=== PATIENT | female | born 1950 | race Caucasian/White ===

== ENCOUNTER 2024-03-20 11:25 | Day surgery (SDC) | payer MEDICARE, SELFPAY ==
[2024-03-20] VITALS (7 sets, daily range): BP systolic 133–170; BP diastolic 83–96; PULSE 67–94; RESP 16–18; TEMP 36.6–37; O2SAT 94–99; BMI 23.9
[2024-03-20] MEDS: Lactated Ringers 1,000 ML 100 ML IVCONT (12:51)
--- NOTE | 2024-03-20 13:55 | PC.NURSE ---
24hr update documented on paper.
--- NOTE | 2024-03-20 14:15 | P.CONAN_ITS ---
Documented by User: Dilma Castro NP 03/19/24 09:37 HPI - Anesthesia Eval Consult details Narrative: 73yo F for Right lateral Eye Muscle Recession,Right medial Rectus Resection Medically optimized per [facility] preop clinic [facility] Past Medical History Medical History (Updated 03/18/24 @ 13:01 by Imani Cook, LAURA) Hx of renal calculi Trigeminal neuralgia Prerenal azotemia Peripheral neuropathy Osteoporosis Nodular thyroid disease Multinodular goiter Macrocytic anemia Insomnia Hypertension Hypercholesteremia Hepatic steatosis Hepatic cyst Diverticulosis Diastolic dysfunction without heart failure Chronic sinusitis Chronic low back pain Cerebral arterial aneurysm Bradycardia Benign paroxysmal positional vertigo Asbestos exposure Anxiety disorder Alcohol dependence, in remission Acromegaly Surgical History Surgical History (Updated 03/18/24 @ 13:00 by Imani Cook RN) Hx of colonoscopy History of neurologic surgery History of surgery Hx of cataract extraction H/O excision of ganglion cyst History of surgery Hx of cerebral aneurysm repair (~2007) Social History Social History (Updated 03/18/24 @ 13:03 by Imani Cook RN) Patient Tobacco Use Status: Former Tobacco user Use of substances other than those prescribed or required for medical reasons: Yes Substance Use Type: Marijuana Substance Use Frequency: Daily Are you DNR?: No Advance Directives: No Advance Directives Information Provided: Yes Meds Allergies Allergy/AdvReac Type Severity Reaction Status Date / Time latex Allergy Unknown Verified 03/20/24 12:04 morphine Allergy Unknown Verified 03/20/24 12:04 Home Medications ?Medication ?Instructions ?Recorded ?Confirmed ?Last Taken ?Type No Known Home Meds 03/20/24 03/20/24 Unknown History Exam Narrative Narrative: ECHO 2022 The mitral valve appears mildly calcified. There is mild mitral regurgitation. The right ventricle is normal in size and function. The left ventricular size is normal. Left ventricular wall thickness is normal. The LV systolic function is normal . The left ventricular ejection fraction is 55-60 %. There are no regional wall motion abnormalities. Grade I, mild diastolic dysfunction with impaired LV relaxation, which may be normal for the patient's age. The pulmonary artery systolic pressure estimation is within normal limits. Assessment and Plan Assessment Anesthesia Assessment: Chart Reviewed Documented by User: Nitza Gonsalez DO 03/20/24 14:41 HPI - Anesthesia Eval Consult details Narrative: 73yo F for Right lateral Eye Muscle Recession,Right medial Rectus Resection Medically optimized per [facility] preop clinic 03/20/24: patient was adamant about not receiving any pain medications intra- operatively, stating that she had this surgery before and had no pain. Agreed with PRN Tylenol in PACU at her discretion and states that she will have marijuana for pain at home. [facility] Past Medical History Medical History (Updated 03/18/24 @ 13:01 by Imani Cook RN) Hx of renal calculi Trigeminal neuralgia Prerenal azotemia Peripheral neuropathy Osteoporosis Nodular thyroid disease Multinodular goiter Macrocytic anemia Insomnia Hypertension Hypercholesteremia Hepatic steatosis Hepatic cyst Diverticulosis Diastolic dysfunction without heart failure Chronic sinusitis Chronic low back pain Cerebral arterial aneurysm Bradycardia Benign paroxysmal positional vertigo Asbestos exposure Anxiety disorder Alcohol dependence, in remission Acromegaly Family History Family history of problems with anesthesia: No Surgical History Surgical History (Updated 03/18/24 @ 13:00 by Imani Cook RN) Hx of colonoscopy History of neurologic surgery History of surgery Hx of cataract extraction H/O excision of ganglion cyst History of surgery Hx of cerebral aneurysm repair (~2007) History of Problems with Anesthesia: No Social History Social History (Updated 03/18/24 @ 13:03 by Imani Cook RN) Patient Tobacco Use Status: Former Tobacco user Use of substances other than those prescribed or required for medical reasons: Yes Substance Use Type: Marijuana Substance Use Frequency: Daily Are you DNR?: No Advance Directives: No Advance Directives Information Provided: Yes Meds Allergies Allergy/AdvReac Type Severity Reaction Status Date / Time latex Allergy Unknown Verified 03/20/24 12:04 morphine Allergy Unknown Verified 03/20/24 12:04 Home Medications ?Medication ?Instructions ?Recorded ?Confirmed ?Last Taken ?Type No Known Home Meds 03/20/24 03/20/24 Unknown History Exam Exam Date and Time: March 20, 2024 1415 Height,Weight and Vital Signs: Height 5 ft 3 in Weight 61.235 kg Vital Signs Temperature 98.3 F 03/20/24 12:49 Pulse Rate 68 03/20/24 12:49 Respiratory Rate 18 03/20/24 12:49 Blood Pressure 170/91 H 03/20/24 12:49 Pulse Oximetry 96 03/20/24 12:49 Oxygen Delivery Method Room Air 03/20/24 12:49 Temperature 98.3 F 03/20/24 12:49 Pulse Rate 68 03/20/24 12:49 Respiratory Rate 18 03/20/24 12:49 Blood Pressure 170/91 H 03/20/24 12:49 Pulse Oximetry 96 03/20/24 12:49 Oxygen Delivery Method Room Air 03/20/24 12:49 Airway Mallampati Class: I TM Dist: >3cm Neck ROM: Full Loose/Missing/Broken Teeth: No (patient denies any loose or broken teeth) Heart: S1S2 Lungs: CTAB Assessment and Plan Assessment Anesthesia Assessment: Anesthesia Plan Discussed and Chart Reviewed Final Anesthetic Review Family History of Problems with Anesthesia: No History of Problems with Anesthesia: No NPO: Yes ASA Class: II Final Preanesthetic Review: No Changes in Pt Med Stat, Meds/Allgs Chart Reviewed, Consent Obtained/Reviewed and Anes Risks/Benef Reviewed Patient Risk: Low Procedure Risk: Low Anesthetic Plan Anesthetic Plan: GA and Agree w/ Assess. and Plan Disposition: Standard PACU
--- NOTE | 2024-03-20 15:12 | HO.OPHTHAL ---
Ophthalmology Operative Note Date of Service: 03/20/24 Narrative: Diagnosis esotropia. Procedures 1 recession of right medial rectus 4.5 mm 2. Resection of right lateral rectus [address] Browne. Anesthesia general. Complications none. The patient was brought to the operative room placed under general anesthesia. The right eye was prepped and draped in the usual sterile ophthalmic fashion. A lid speculum was placed in the eye and the peritomy was created around the medial rectus muscle. The muscle was hooked and secured with a double-armed Vicryl suture. It was disinserted from the globe and reattached to a position 4.5 mm behind the original insertion using a hang back technique. Conjunctiva was closed with interrupted Vicryl sutures. A limbal peritomy was then created around the lateral rectus muscle. The muscle was hooked and secured with a Tyler muscle clamp and the overlying fascial attachments were dissected free. A 7 mm resection was marked off with cautery and secured with a double-armed Vicryl suture. The distal muscle was resected and the resection point drawn forward to the original insertion. Conjunctiva was closed with interrupted Vicryl sutures. The patient was then awoken from general anesthesia and discharged to postoperative recovery in good condition.
--- OUTSIDE RECORDS SUMMARY | 2024-03-21 08:25 | XMS_ITS | Continuity of Care Document ---
Author Organization [facility] Address [address] [place] [id number]- Care Team Providers Care Machine Printer Name Role Phone Toby NUÑEZ, Michelle Cruz Primary Care Physician [phone] Encounter [facility] [facility] [place] [id number] Date(s): 03/11/24 - 03/18/24 [facility] [address] [place], [place] [address] Attending Physician: Yary NUÑEZ, Hayden Lucero Referring Physician: Benigno Browne MD Allergies, Adverse Reactions, Alerts Substance Reaction Severity Status morphine Active Latex Active Immunizations Given and Recorded Vaccine Date Status Refusal Reason SARS-CoV-2 (COVID-19) mRNA BNT-162b2 vac 08/11/21 Recorded SARS-CoV-2 (COVID-19) mRNA-1273 vaccine 02/06/21 R ecorded SARS-CoV-2 (COVID-19) mRNA-1273 vaccine 01/09/21 R ecorded zoster vaccine, inactivated 10/22/12 Recorded tetanus-diphtheria toxoids (Td) 09/25/02 Recorded Medications iodine 0 Refills, Maintenance, 01/19/23 11:59:00 EDT, Partial fill upon patient request if the prescription is for a schedule II opioid drug. Start Date: 01/19/23 Status: Ordered Vitamin D3 1000 intl units oral capsule 1 capsule = 25 mcg, By Mouth, Daily, 0 Refills, Maintenance, 01/19/23 11:59:00 EDT, Partial fill upon patient request if the prescription is for a schedule II opioid drug. Start Date: 01/19/23 Status: Ordered Problem List Condition Confirmation Course Effective Dates Status Health Status Informant Acromegaly Confirmed Active Anxiety disorder Confirmed Active Benign paroxysmal positional vertigo Confirmed Active Benign polyp of colon Confirmed Active Bradycardia Confirmed Active Breast cancer screening Confirmed Active Cerebral arterial aneurysm Confirmed Active Alcohol dependence in remission Confirmed Active Chronic low back pain Confirmed Active Chronic sinusitis Confirmed Active Vaccine counseling Confirmed Active Diastolic dysfunction without heart failure Confirmed Active Diverticular disease of colon Confirmed Active Asbestos exposure Confirmed Active Family history of breast cancer Confirmed Active Flank pain, chronic Confirmed Active Food allergy Confirmed Active Gluten sensitivity Confirmed Active Hypercholesterolemia Confirmed Active Hypertension Confirmed Active Hypervitaminosis D Confirmed Active Elevated vitamin B12 level Confirmed Active Insomnia Confirmed Active Insomnia Confirmed Active Kidney stone Confirmed Active White coat syndrome without hypertension Confirmed Active Hepatic cyst Confirmed Active Macrocytic anemia Confirmed Active Mammographic Microcalcification, left UOQ Confirmed 07/20/10 Active Menopausal and postmenopausal disorders Confirmed Active Multinodular goiter Confirmed Active Nodular thyroid disease Confirmed Active Osteoporosis Confirmed Active Healthcare maintenance Confirmed Active Peripheral neuropathy Confirmed Active Plantar fasciitis Confirmed Active Colon polyps Confirmed Active Prerenal azotemia Confirmed Active Prevention status Confirmed Active Severe obesity (BMI 35.0-39.9) with comorbidity Confirmed Active Statin declined Confirmed Active Hepatic steatosis Confirmed Active Trigeminal neuralgia Confirmed Active Vitamin D deficiency Confirmed Active Vital Signs Most recent to oldest [Reference Range]: 1 Height 161 cm (03/11/24 10:50 AM) Oxygen Saturation [94-100 %] 97 % (03/11/24 10:50 AM) Pulse Rate [55-90 bpm] 65 bpm (03/11/24 10:50 AM) Blood Pressure [90-138/55-84 mm Hg] 162/ 94mm Hg *H* (03/11/24 10:50 AM) Respiratory Rate [16-30 br/min] 15 br/mi n *L* (03/11/24 10:50 AM) Mode of Delivery (Oxygen) Room air (03/11/24 10:50 AM) Blood pressure sites Arm, right (03/11/24 10:50 AM) Weight Obtained Via Standing scale (03/11/24 10:50 AM) Social History Social History Type Response Smoking Status Former smoker, quit more than 30 days ago; Other: quit 40 years ago; entered on: 12/20/21 Sex Patient Care team information Care Team Personnel Name: Michelle Luis MD Position: [facility] Physician - Primary Care Member Role: PCP Address: Address: [address] [place] [address], [address] [place] [address]- Care Team Related Persons Name: OTIS BUNCH Address: home [address], [place] Name: BEATRICE PENN Address: home [place], [place] Name: NONE, PER PT REQUEST 21
== END 2024-03-20 16:30 | disposition home or self-care (01) ==
PROVIDERS: PCP Internal Medicine; Visit Provider Ophthalmology
PROC: (CPT 67312; principal; 2024-03-20 13:40)
DX: H53.2 Diplopia (principal); H50.00 Unspecified esotropia; D53.9 Nutritional anemia, unspecified; I10 Essential (primary) hypertension; E78.5 Hyperlipidemia, unspecified; E55.9 Vitamin D deficiency, unspecified; M81.0 Age-related osteoporosis without current pathological fracture; G62.9 Polyneuropathy, unspecified; F41.9 Anxiety disorder, unspecified; Z98.890 Other specified postprocedural states; Z91.040 Latex allergy status; Z88.5 Allergy status to narcotic agent; Z87.891 Personal history of nicotine dependence
CPT/HCPCS: 67312; J1100; J1596; J2405; J2704